=== PATIENT | female | born 1965 | race Caucasian/White ===

== ENCOUNTER 2017-01-16 09:22 | Day surgery (SDC) | payer OTHER ==
[2017-01-12 19:32] VITALS: BMI 30.7
[2017-01-16 10:37] LABS: ANION GAP 6 (8-16); CALCIUM 9.6 mg/dl (8.4-10.2); CO2 23 mmol/L (22-28); CREATININE 1.4 mg/dl (0.6-1.3); GLUCOSE,RANDOM 146 mg/dl (74-106)
[2017-01-16] MEDS ORDERED: DEXAMETHASONE SOD PHOSPHATE/PF 10 MG/ML SDV ONE (11:10)
[2017-01-16] MEDS ORDERED: MIDAZOLAM HCL 2 MG/2 ML SINGLE DOSE VIAL ONE ×2 (11:10→13:19)
[2017-01-16] MEDS ORDERED: ROPIVACAINE HCL 0.5% 30ML VIAL ONE (11:10)
[2017-01-16] MEDS ORDERED: BUPIVACAINE HCL/EPINEPHRINE/PF 30 ML VIAL IJ ONE (12:45)
[2017-01-16] MEDS ORDERED: ceFAZolin SODIUM 1 GM VIAL ONE (13:07)
[2017-01-16] MEDS ORDERED: ONDANSETRON 4 MG/2 ML VIAL ONE (13:07)
[2017-01-16] MEDS ORDERED: DEXAMETHASONE SOD PHOSPHATE 4 MG/1 ML VIAL ONE (13:07)
[2017-01-16] MEDS ORDERED: PROPOFOL 20 ML ONE ×3 (13:08→14:09)
[2017-01-16] MEDS ORDERED: KETOROLAC TROMETHAMINE 30 MG/1 ML VIAL ONE (13:54)
[2017-01-16] MEDS ORDERED: methylPREDNISolone ACET (DEPO) 40 MG/1 ML VIAL ONE (13:57)
[2017-01-16] MEDS ORDERED: oxyCODONE HCL 5 MG TABLET PO PRN ×2 (14:05→14:38)
[2017-01-16] MEDS ORDERED: LACTATED RINGERS SOLUTION 1,000 ML IV SCH (14:15)
[2017-01-16] MEDS ORDERED: oxyCODONE HCL 10 MG SUSTAINED ACTING TABLET PO ONE (14:38)
--- NOTE | 2017-01-16 14:40 | DS ---
Physical Examination Vital Signs: Vital Signs Temperature 98.2 F 01/16/17 09:49 Pulse Rate 81 01/16/17 09:49 Respiratory Rate 18 01/16/17 09:49 Blood Pressure 125/81 01/16/17 09:49 O2 Sat by Pulse Oximetry (%) 98 01/16/17 09:49 Labs: CBC, BMP 01/16/17 10:20 Discharge Summary Reason For Visit: PARTIAL ROTATOR CUFF TEAR, ADHESIVE CAPSULITIS RT - Home Medications Comprehensive Discharge Medication List: Ambulatory Orders Insulin Glargine,Hum.rec.anlog [Lantus (nf)] 18 units SQ DAILY 01/12/17 Lisinopril [Prinivil] 20 mg PO DAILY 01/12/17 Metformin HCl 500 mg PO BID 01/12/17
--- NOTE | 2017-01-16 14:40 | OP ---
Operative Note - Note: Operative Date: 01/16/17 Pre-Operative Diagnosis: Right frozen shoulder, rotator cuff tendinosis/ partial bursal tear, bursitis Operation: RSA, capsulotomy, debridement, decompression, rotator cuff repair with [employer] Rotator Cuff Patch Post-Operative Diagnosis: Same as Pre-op Surgeon: Cedric Gutierrez Anesthesia: General Operative Report Dictated: Yes
--- NOTE | 2017-01-16 14:47 | SURG ---
Surgery Asset Card Clerk Note Asset Card Clerk: Gus Gooden PA-C Date of Service: 01/16/17 Diagnosis: Right frozen shoulder, rotator cuff tendinosis/ partial bursal tear, bursitis Procedure: Right shoulder arthroscopy, capsulotomy, debridement, decompression, rotator cuff repair with Rot[employer] Bio[employer]ive Rotator Cuff Patch I was present for the entirety of the operative procedure. For further detail, please refer to operative report. Visit type - Case Type Case Type: Scheduled Admission - New patient This patient is new to me today: Yes Date on this admission: 01/16/17
[2017-01-16 15:10] VITALS: TEMP 98
[2017-01-16 15:26] VITALS: BP 124/75; PULSE 74
--- NOTE | 2017-01-20 14:14 | PATH ---
Surgical Pathology Report Patient Name: MANI CALVERT [facility]. Rec. #: [id number] /Age/Gender: 1965 (Age: 51) / F Account: [id number] Location: [facility] Taken: 01/16/2017 Received: 01/16/2017 Reported: 01/20/2017 Physicians: Cedric Gutierrez M.D. Specimen(s) Received RIGHT SHOULDER SHAVING Clinical History Partial rotator cuff tear, adhesive capsulitis right Final Diagnosis SOFT TISSUE, RIGHT SHOULDER, ARTHROSCOPIC SHAVINGS: SYNOVIUM AND FIBROCARTILAGE WITH MYXOHYALINE DEGENERATION. FRAGMENTS OF UNREMARKABLE SKELETAL MUSCLE. Electronically Signed Frank Ramírez M.D. Gross Description Received in formalin, labeled "right shoulder shavings" is a 2.7 x 2.0 x 0.5 cm aggregate of ferris-yellow soft tissue fragments. A customer support representative portion is submitted in one cassette. AF/01/19/2017 final/01/19/2017
== END 2017-01-16 16:03 | disposition home or self-care (01) ==
LOC: FASU 09:22
PROVIDERS: ATTEND Orthopaedic Surgery
PROC: 0RNJ4ZZ Release Right Shoulder Joint, Percutaneous Endoscopic Approach (ICD-10-PCS; 2017-01-16)
PROC: 0RBJ4ZZ Excision of Right Shoulder Joint, Percutaneous Endoscopic Approach (ICD-10-PCS; 2017-01-16)
PROC: 0RU Upper Joints, Supplement (ICD-10-PCS; 2017-01-16)
PROC: 0RSJ4ZZ Reposition Right Shoulder Joint, Percutaneous Endoscopic Approach (ICD-10-PCS; 2017-01-16)
PROC: 0LB14ZZ Excision of Right Shoulder Tendon, Percutaneous Endoscopic Approach (ICD-10-PCS; principal; 2017-01-16 13:45)
DX: M75.111 Incomplete rotator cuff tear or rupture of right shoulder, not specified as traumatic (principal); M75.01 Adhesive capsulitis of right shoulder; M75.51 Bursitis of right shoulder
CPT/HCPCS: 36415; 80048; 88304-TC